=== PATIENT | male | born 1990 | race Caucasian/White ===

== ENCOUNTER 2017-02-02 14:41 | Emergency (ER) | payer OTHER ==
[~2017-02-02] VITALS: Ht 175.3 cm; Wt 94.2 kg
[~2017-02-02 14:41] MED LIST: AMOX500T PO; BACT2OIN TOP; LEVE500 PO; [UNRECOGNIZED DRUG - OTHER] PO
[2017-02-02 14:45] VITALS: PULSE 106; RESP 16; TEMP 98.5; O2SAT 98
[2017-02-02] MEDS ORDERED: TOPI1TAB31 PO (14:56)
[2017-02-02] MEDS ORDERED: MIRTA15 PO (14:56)
[2017-02-02] MEDS ORDERED: PENI500T PO ×3 (15:09→15:13)
[2017-02-02] MEDS ORDERED: MUPI2%T TOPICAL ×3 (15:09→15:13)
--- NOTE | 2017-02-02 15:09 | PD ---
HPI Chief Complaint: Bleeding Time Seen by Provider: 15:04 Travel History International Travel<30 days: No Contact w/Intl Traveler<30days: No Traveled to known affect area: No History of Present Illness HPI This 26-year-old male is brought by his parents. He has a history of autism. He's had a cut on the tip of his tongue for a couple of days which is intermittent bleeding. He also has been gouging at his ears. Apparently he does this to alleviate stress PFSH Past Medical History Hx Anticoagulant Therapy: No Diabetes: No Diminished Hearing: No Psychiatric: Yes (AUTISTIC, developmentally delayed ) Immunizations Current: Yes Seizures: Yes Tetanus Vaccination: Unknown Influenza Vaccination: No Past Surgical History Surgical History: No Previous Surgery Abdominal Surgery: No Cardiac Surgery: No Ear Surgery: No Endocrine Surgery: No Eye Surgery: No Genitourinary Surgery: No Gynecologic Surgery: No Oral Surgery: Yes Thoracic Surgery: No Social History Alcohol Use: No Tobacco Use: No Substance Use: No Allergies-Medications (Allergen,Severity, Reaction): Coded Allergies: No Known Allergies (Verified , 02/02/17) Reported Meds & Prescriptions Reported Meds & Active Scripts Active Reported Topiramate 100 Mg Tab 100 Mg PO HS Mirtazapine 15 Mg Tab 15 Mg PO HS Review of Systems ROS Limitations: Uncooperative, Speech Impaired, Poor Historian General / Constitutional: No: Fever, Chills Skin: Positive Rash Physical Exam Narrative GENERAL: Well-developed male. Very cooperative SKIN: Focused skin assessment warm/dry. HEAD: Atraumatic. Normocephalic. EYES: Pupils equal and round. No scleral icterus. No injection or drainage. ENT: No nasal bleeding or discharge. Mucous membranes pink and moist. There is a 1 cm laceration on the tip of the tongue. There are abrasions on both earlobes NECK: Trachea midline. No JVD. . MUSCULOSKELETAL: No obvious deformities. No clubbing. No cyanosis. No edema. NEUROLOGICAL: Awake and alert. No obvious cranial nerve deficits. Motor grossly within normal limits. Nonverbal Data Data Last Documented VS Vital Signs Date Time Temp Pulse Resp B/P Pulse Ox O2 Delivery O2 Flow Rate FiO2 02/02/17 14:45 98.5 106 16 98 MDM Medical Decision Making Medical Screen Exam Complete: Yes Emergency Medical Condition: Yes Medical Record Reviewed: Yes Differential Diagnosis This young man with autism has a small cut his tongue. Parents are very concerned about possible infection developing. He'll be put on penicillin and also given prescription for Bactroban Narrative Course Prescriptions for penicillin and Bactroban will be written Diagnosis Primary Impression: Tongue laceration Qualified Code: S01.512A - Tongue laceration, initial encounter Additional Impression: Abrasion of ear Qualified Code: S00.419A - Abrasion of ear, unspecified laterality, initial encounter Scripts Mupirocin Topical (Bactroban Topical)2 % Cream1 Applic TOPICAL BID #1 TUBE Ref 0 Prov:Doron Sanchez MD 02/02/17 Penicillin V Potassium 500 Mg [id number] Mg PO Q6H 7 Days Ref 0 Prov:Doron Sanchez MD 02/02/17 Disposition: 01 DISCHARGE HOME Condition: Stable Doron Sanchez MD February 02, 2017 15:09
== END 2017-02-02 15:15 | disposition home or self-care (01) ==
LOC: PHEFT 14:41
DX: S01.512A Laceration without foreign body of oral cavity, initial encounter (principal); S00.412A Abrasion of left ear, initial encounter; S00.411A Abrasion of right ear, initial encounter; F84.0 Autistic disorder; R56.9 Unspecified convulsions; Z79.899 Other long term (current) drug therapy; W45.8XXA Other foreign body or object entering through skin, initial encounter
CPT/HCPCS: 99282

== ENCOUNTER 2017-05-21 10:39 | Emergency (ER) | payer OTHER ==
[~2017-05-21] VITALS: Ht 177.8 cm; Wt 92.0 kg
[~2017-05-21 10:39] MED LIST changes: -AMOX500T PO; -BACT2OIN TOP; -LEVE500 PO; +MIRTA15 PO; +MUPI2%T TOPICAL; +PENI500T PO; +TOPI1TAB31 PO; -[UNRECOGNIZED DRUG - OTHER] PO
[2017-05-21 10:42] VITALS: TEMP 98
[2017-05-21] MEDS ORDERED: MIRTA15 PO (10:57)
[2017-05-21] MEDS ORDERED: TOPA100T11 PO (10:57)
[2017-05-21] MEDS ORDERED: MUPI2%T TOPICAL (11:04)
[2017-05-21] MEDS ORDERED: PENI500T PO (11:04)
--- NOTE | 2017-05-21 11:04 | PD ---
HPI . Gingival bleeding Chief Complaint: Oral / Dental Pain or Problem Time Seen by Provider: 10:51 Travel History International Travel<30 days: No Contact w/Intl Traveler<30days: No Traveled to known affect area: No History of Present Illness HPI This is a nonverbal autistic patient who is brought in by his parents because of bleeding from his lower pelvis for the last couple days. They state that he has had this happen before and has been treated with antibiotics with good relief. They state that he continues to be pretty well. He has not had any fevers. They report that he does seem to be in some pain. In addition, he puts his fingers in his ears as a "stress signal." He has been doing this a lot for the last couple days and has some superficial wounds at the introitus of his EACs, R>L. The parents report that this has previously been successfully treated with a topical antibiotic. No further history is obtainable from the patient as he is nonverbal. PFSH Past Medical History Hx Anticoagulant Therapy: No Diabetes: No Diminished Hearing: No Psychiatric: Yes (AUTISTIC, developmentally delayed ) Immunizations Current: Yes Seizures: Yes Past Surgical History Abdominal Surgery: No Cardiac Surgery: No Ear Surgery: No Endocrine Surgery: No Eye Surgery: No Genitourinary Surgery: No Gynecologic Surgery: No Neurologic Surgery: No Oral Surgery: Yes Thoracic Surgery: No Other Surgery: No Social History Alcohol Use: No Tobacco Use: No Substance Use: No Allergies-Medications (Allergen,Severity, Reaction): Coded Allergies: No Known Allergies (Verified , 05/21/17) Reported Meds & Prescriptions Reported Meds & Active Scripts Active Bactroban Topical (Mupirocin) 2 % Cream 1 Applic TOPICAL BID Penicillin V Potassium 500 Mg Tab 500 Mg PO Q6H 7 Days Reported Topiramate 100 Mg Tab 100 Mg PO HS Mirtazapine 15 Mg Tab 15 Mg PO HS Review of Systems ROS Limitations: Speech Impaired General / Constitutional: No: Fever, Chills HENT: Positive: Gingival Bleeding Physical Exam Narrative GENERAL: Awake and alert and in no acute distress. Nonverbal and somewhat resistant to examination. SKIN: Warm and dry. HEAD: Atraumatic. Normocephalic. He has dried blood on his lower lip. No source of bleeding noted on the lip. He also has some blood on the lower gingiva. He has some superficial abrasions at the introitus to both EACs. EYES: Pupils equal and round. NECK: Trachea midline. No palpable cervical lymphadenopathy. CARDIOVASCULAR: Regular rate and rhythm. RESPIRATORY: No accessory muscle use. MUSCULOSKELETAL: No obvious deformities. No edema. NEUROLOGICAL: Awake and alert. No obvious cranial nerve deficits. Motor grossly within normal limits. Nonverbal. PSYCHIATRIC: Unable to assess. Data Data Last Documented VS Vital Signs Date Time Temp Pulse Resp B/P (MAP) Pulse Ox O2 Delivery O2 Flow Rate FiO2 05/21/17 10:42 98.0 [facility] Medical Decision Making Medical Screen Exam Complete: Yes Emergency Medical Condition: Yes Differential Diagnosis Differential diagnosis includes but is not limited to gingivitis, local trauma, coagulopathy, bleeding disorder Narrative Course This is an autistic, nonverbal patient who presents with bleeding gums. His parents state that he has had this before and that it has been successfully treated with oral antibiotics. In addition, he puts his index finger into his ears as a "stress response." This has caused an abrasion at the introitus to both EACs. The parents report that this has previously been successfully treated with a topical antibiotic. Diagnosis Primary Impression: Gingivitis Additional Impression: Abrasion of ear Qualified Codes: S00.419A - Abrasion of unspecified ear, initial encounter Med/Other Pt SpecificInfo: Prescription(s) given Scripts Penicillin V Potassium (Penicillin V Potassium) 500 Mg Tab 500 MG PO Q6H for Infection for 7 Days, TAB 0 Refills Prov: Della Jacobsen MD 05/21/17 Mupirocin Topical (Bactroban Topical) 2 % Cream 1 APPLIC TOPICAL BID for Mgmt Bacterial Infection, #1 TUBE 0 Refills Prov: Della Jacobsen MD 05/21/17 Disposition: 01 DISCHARGE HOME Condition: Stable Della Jacobsen MD May 21, 2017 11:04
[2017-05-21] MEDS ORDERED: TYLETAB34 PO (11:10)
== END 2017-05-21 11:16 | disposition home or self-care (01) ==
LOC: PHED 10:39
DX: K05.10 Chronic gingivitis, plaque induced (principal); S00.419A Abrasion of unspecified ear, initial encounter; X58.XXXA Exposure to other specified factors, initial encounter; F84.0 Autistic disorder
CPT/HCPCS: 99284

== ENCOUNTER 2017-05-26 11:49 | Emergency (ER) | payer OTHER ==
[~2017-05-26] VITALS: Ht 170.2 cm; Wt 92.0 kg
[~2017-05-26 11:49] MED LIST changes: +TOPA100T11 PO; +TYLETAB34 PO
[2017-05-26 11:53] VITALS: RESP 20
[2017-05-26] MEDS ORDERED: PENI500T PO (12:42)
--- NOTE | 2017-05-26 12:42 | PD ---
HPI Chief Complaint: Laceration/Skin Injury Time Seen by Provider: 12:15 Travel History International Travel<30 days: No Contact w/Intl Traveler<30days: No Traveled to known affect area: No History of Present Illness HPI 27-year-old male was brought in by his parents for bleeding from the gum and bleeding from the tongue. Patient has history of nonverbal autism. Patient has history of recurrent bleeding from the tongue and bleeding from the gums. Parents state that patient usually responded to oral penicillin and the bleeding stopped by itself. Patient was seen in emergency room 5 days ago for the same problem. Patient was given prescription for penicillin and Bactroban cream. Parents states that patient has persistent oozing blood from the gum area the tongue despite taking the medications. Parents reported no fever. PFSH Past Medical History Hx Anticoagulant Therapy: No Diabetes: No Diminished Hearing: No Psychiatric: Yes (AUTISTIC, developmentally delayed ) Immunizations Current: Yes Seizures: Yes ?: Not Past Surgical History Abdominal Surgery: No Cardiac Surgery: No Ear Surgery: No Endocrine Surgery: No Eye Surgery: No Genitourinary Surgery: No Gynecologic Surgery: No Oral Surgery: Yes Thoracic Surgery: No Other Surgery: No Social History Alcohol Use: No Tobacco Use: No Substance Use: No Allergies-Medications (Allergen,Severity, Reaction): Coded Allergies: codeine (Verified Adverse Reaction, Unknown, aggitation, 05/26/17) Reported Meds & Prescriptions Reported Meds & Active Scripts Active Penicillin V Potassium 500 Mg Tab 500 Mg PO Q6H Penicillin V Potassium 500 Mg Tab 500 Mg PO Q6H 7 Days Bactroban Topical (Mupirocin) 2 % Cream 1 Applic TOPICAL BID Reported Mirtazapine 15 Mg Tab 15 Mg PO HS Topamax (Topiramate) 100 Mg Tab 100 Mg PO HS Review of Systems General / Constitutional: No: Fever Eyes: No: Visual changes HENT: No: Headaches Cardiovascular: No: Chest Pain or Discomfort Respiratory: No: Shortness of Breath Gastrointestinal: No: Abdominal Pain Genitourinary: No: Dysuria Musculoskeletal: No: Pain Skin: No Rash Neurologic: No: Weakness Psychiatric: No: Depression Endocrine: No: Polydipsia Hematologic/Lymphatic: No: Easy Bruising Physical Exam Narrative GENERAL: Well-nourished, well-developed patient. SKIN: Focused skin assessment warm/dry. HEAD: Normocephalic. EYES: No scleral icterus. No injection or drainage. NECK: Supple, trachea midline. No JVD or lymphadenopathy. CARDIOVASCULAR: Regular rate and rhythm without murmurs, gallops, or rubs. RESPIRATORY: Breath sounds equal bilaterally. No accessory muscle use. GASTROINTESTINAL: Abdomen soft, non-tender, nondistended. MUSCULOSKELETAL: No cyanosis, or edema. BACK: Nontender without obvious deformity. No CVA tenderness. Patient has some fresh blood and old blood around the gum area however no active bleeding source noted. Patient has small abrasion to the tip of the tongue but not active bleeding. Data Data Last Documented VS Vital Signs Date Time Temp Pulse Resp B/P (MAP) Pulse Ox O2 Delivery O2 Flow Rate FiO2 05/26/17 11:53 20 MDM Medical Decision Making Medical Screen Exam Complete: Yes Emergency Medical Condition: Yes Differential Diagnosis Differential diagnosis including, laceration, abrasion, gingivitis. Narrative Course Patient with tongue laceration and bleeding gum. I spoke with maxillofacial surgeon. Patient will be seen this week in the office. Diagnosis Primary Impression: Gingivitis Additional Impression: Abrasion of tongue Qualified Codes: S00.512A - Abrasion of oral cavity, initial encounter Patient Instructions: General Instructions Additional Instructions: Continue with penicillin as directed. Follow-up with oral surgeon. Med/Other Pt SpecificInfo: Prescription(s) given Scripts Penicillin V Potassium (Penicillin V Potassium) 500 Mg Tab 500 MG PO Q6H for Infection, #40 TAB 0 Refills Prov: Seb Avendaño MD 05/26/17 Disposition: 01 DISCHARGE HOME Condition: Stable Seb Avendaño MD May 26, 2017 12:42
== END 2017-05-26 13:10 | disposition home or self-care (01) ==
LOC: PHED 11:49
DX: K05.10 Chronic gingivitis, plaque induced (principal); S00.512A Abrasion of oral cavity, initial encounter; F84.0 Autistic disorder; Z86.69 Personal history of other diseases of the nervous system and sense organs; X58.XXXA Exposure to other specified factors, initial encounter
CPT/HCPCS: 99283